=== PATIENT | female | born 1985 | race Caucasian/White ===

== ENCOUNTER 2023-06-26 12:56 | Outpatient (CLI) | payer MEDICAID ==
[~2023-06-26] VITALS: Ht 170.2 cm; Wt 75.5 kg
[2023-06-26] VITALS (7 sets, daily range): BP systolic 117–145; BP diastolic 58–74; PULSE 65–96; TEMP 98.4
[~2023-06-26 12:56] MED LIST: MOTRIN 600600 MG/TAB PO; PERCOCET 325 MG1 TA2 PO
[2023-06-26] MEDS ORDERED: ASPIRIN 81M81 MG/TA2 PO (13:21)
[2023-06-26] MEDS ORDERED: VALTREX 50500 MG/TAB PO (13:22)
[2023-06-26] MEDS ORDERED: WELLBUTRIN SR150 M1 PO (13:22)
[2023-06-26] MEDS ORDERED: LAMICTAL 100MG100 MG PO (13:46)
[2023-06-26] MEDS ORDERED: Acetaminophen 500 MG TAB PO PRN (14:00)
[2023-06-26] MEDS ORDERED: LR 1,000 ML IV PRN (14:00)
--- NOTE | 2023-06-26 14:24 | NUR ---
1310 PATIENT HERE FOR COMPLAINTS OF CONTRACTIONS SINCE 8 AM. STATES CONTRACTIONS GETTING STRONGER. EFM ON FHT 130 BABY VERY ACTIVE. NO CONTRACTIONS ON MONITOR OR PALPATED AT THIS TIME BY THIS NURSE BUT PATIENT STATES SHE KNOWS SHE IS HAVING CONTRACTIONS. UNABLE TO SVE DUE TO COMPLETE PREVIA. NO BLEEDING OR LEAKING FLUID NOTED. COMPLAINS OF SEVERE HEADACHE ALSO
--- NOTE | 2023-06-26 14:52 | NUR ---
0042 DR VARMA HERE TO EXAM PATIENT. 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 SPEC EXAM DONE BY DR VARMA. NO BLEEDING NOTED. MANUAL EXAM ALSO DONE BY DR VARMA. /-3. DR VARMA ENCOURAGES PO HYDRATE. TYLENOL 1000MG GIVEN FOR HEADACHE. CONTINUE TO MONITOR PATIENT AND BABY AT THIS TIME.
[2023-06-26 15:19] LABS: COLLECTION METHOD CLEAN CATCH
[2023-06-26 15:22] LABS: PH 6.5 (5.0-8.5); URINE APPEARANCE CLEAR (CLEAR/HAZY); URINE BLOOD NEGATIVE (NEGATIVE); URINE COLOR YELLOW (YELLOW); URINE GLUCOSE NEGATIVE (NEGATIVE); URINE KETONE NEGATIVE (NEGATIVE); URINE NITRATE NEGATIVE (NEGATIVE); URINE PROTEIN(semi-quant) NEGATIVE (NEGATIVE); URINE UROBILINOGEN 0.2 E.U/dL (0.2-1.0)
[2023-06-26] MEDS ORDERED: Terbutaline 1 MG/ML 1 ML AMP SQ ONE (16:15)
--- NOTE | 2023-06-26 17:13 | NUR ---
1610 PATIENT OFFERED BRETHINE 0.25 SQ TO HELP WITH CONTRACTION, EXPLIANED MED REACTIONS TO PATIENT WITH VERBL UNDERSTANDING. PATIENT STATES WOULOD LIKE TO TRY IT. 1615 TERB 0.25 SQ LEFT ARM.
--- NOTE | 2023-06-26 17:17 | NUR ---
1700 PATIENT STATES SHE IS FEELING LESS CONTRACTIONS AFTER MEDICINE. BUT STILL FEELS SOME BUT FEELS LIKE CAN GO HOME. INSTRUCTED PATIENT TO TAKE IT EASY THIS WEEKEND AND DRINK PLENTY OF FLUID. ALL DISCHARGE INSTRUCTIONS GIVEN TO PATIENT WITH VERBAL UNDERSTANDING. FHT 125.
== END 2023-06-26 17:00 ==
LOC: LDRO 12:56
PROVIDERS: Obstetrics & Gynecology
DX: O47.03 False labor before 37 completed weeks of gestation, third trimester (principal); Z3A.28 28 weeks gestation of pregnancy
CPT/HCPCS: J3105